=== PATIENT | female | born 1955 | race Caucasian/White ===

== ENCOUNTER 2020-11-27 07:20 | Day surgery (SDC) | payer MEDICAID, SELFPAY ==
[~2020-11-27] VITALS: Ht 154.9 cm; Wt 106.6 kg
[2020-11-27] MEDS ORDERED: DIPHENHYDRAMINE INJ 50 MG/ML VIAL ONE (08:49)
[2020-11-27] MEDS ORDERED: MIDAZOLAM HCL 5 MG/5 ML VIAL ONE (08:49)
[2020-11-27 15:00] VITALS: BP_SYST 125
== END 2020-11-27 10:25 | disposition home or self-care (01) ==
LOC: SDS 07:20 → SMU 07:20 → SDS 10:25
PROVIDERS: ATTEND Internal Medicine
DX: M51.16 Intervertebral disc disorders with radiculopathy, lumbar region (principal); G89.4 Chronic pain syndrome; M51.9 Unspecified thoracic, thoracolumbar and lumbosacral intervertebral disc disorder; E11.9 Type 2 diabetes mellitus without complications; I10 Essential (primary) hypertension; E66.9 Obesity, unspecified; M47.9 Spondylosis, unspecified; M79.10 Myalgia, unspecified site; Z79.899 Other long term (current) drug therapy; Z20.822 Contact with and (suspected) exposure to COVID-19
CPT/HCPCS: 62323; 82962; J2250; U0003; 76000; J1200

== ENCOUNTER 2021-01-31 07:50 | Day surgery (SDC) | payer MEDICAID, SELFPAY ==
[~2021-01-31] VITALS: Ht 152.4 cm; Wt 68.0 kg
[2021-01-31] MEDS ORDERED: LIDOCAINE 1% 10 MG/ML, 20 ML MDV INJ ONE (07:51)
[2021-01-31] MEDS ORDERED: BUPIVACAINE /PF 0.25% 30 ML VIAL INJ ONE (07:51)
[2021-01-31] MEDS ORDERED: IOPAMIDOL 50 ML VIAL IV ONE (07:51)
[2021-01-31] MEDS ORDERED: methylPREDNISolone ACETATE 40 MG/ML IM ONE (07:51)
[2021-01-31] MEDS ORDERED: MIDAZOLAM HCL 2 MG/2 ML VIAL (VERSED) ONE (08:06)
[2021-01-31] MEDS ORDERED: DIPHENHYDRAMINE INJ 50 MG/ML VIAL ONE (08:07)
[2021-01-31] MEDS ORDERED: MORPHINE 2 MG/ML INJ. SYRINGE ONE (09:59)
[2021-01-31 15:00] VITALS: BP_SYST 142
== END 2021-01-31 11:25 | disposition home or self-care (01) ==
LOC: SDS 07:50 → SMU 07:51 → SDS 11:25
PROVIDERS: ATTEND Internal Medicine
DX: M51.16 Intervertebral disc disorders with radiculopathy, lumbar region (principal); E11.9 Type 2 diabetes mellitus without complications; I10 Essential (primary) hypertension; E66.9 Obesity, unspecified; G89.4 Chronic pain syndrome; Z79.899 Other long term (current) drug therapy; Z20.822 Contact with and (suspected) exposure to COVID-19
CPT/HCPCS: 64483; 82962; J1200; J2270; U0003; 76000; J1030; J2001; J3465; J3490; Q9967

== ENCOUNTER 2022-06-17 06:44 | Day surgery (SDC) | payer MEDICAID ==
[~2022-06-17] VITALS: Ht 160 cm; Wt 104.3 kg
[2022-06-17] MEDS ORDERED: DIPHENHYDRAMINE INJ 50 MG/ML VIAL ONE (08:58)
[2022-06-17] MEDS ORDERED: MIDAZOLAM HCL 5 MG/5 ML VIAL ONE (09:01)
[2022-06-17] MEDS ORDERED: fentaNYL CITRATE/PF 100 MCG/2 ML AMP ONE (09:03)
[2022-06-17] MEDS ORDERED: methylPREDNISolone ACETATE 40 MG/ML ONE (12:00)
[2022-06-17] MEDS ORDERED: LIDOCAINE 2%, 20 ML MDV ONE (12:00)
[2022-06-17] MEDS ORDERED: ISOVUE-300 (IOPAMIDOL) 100 ML INFUS..BTL IV ONE (12:00)
[2022-06-17] MEDS ORDERED: NORMAL SALINE 10 ML VIAL ONE (12:00)
[2022-06-17 14:26] VITALS: BP_SYST 150
== END 2022-06-17 10:20 | disposition home or self-care (01) ==
LOC: SDS 06:44 → SMU 07:10 → SDS 10:20
PROVIDERS: ATTEND Internal Medicine
DX: M51.16 Intervertebral disc disorders with radiculopathy, lumbar region (principal); G89.4 Chronic pain syndrome; I10 Essential (primary) hypertension; E11.9 Type 2 diabetes mellitus without complications; Z88.8 Allergy status to other drugs, medicaments and biological substances; Z20.822 Contact with and (suspected) exposure to COVID-19; Z79.84 Long term (current) use of oral hypoglycemic drugs; Z79.899 Other long term (current) drug therapy
CPT/HCPCS: 36415; 62323; 82962; U0003; J1200; J2001; J1030; J2250; J3010; Q9967; J7030; 76000

== ENCOUNTER 2022-11-18 07:59 | Day surgery (SDC) | payer MEDICAID ==
[~2022-11-18] VITALS: Ht 152.4 cm; Wt 106.6 kg
[2022-11-18] MEDS ORDERED: ISOVUE-300 (IOPAMIDOL) 100 ML INFUS..BTL IV ONE (09:00)
[2022-11-18] MEDS ORDERED: LIDOCAINE 2%, 20 ML MDV ONE (09:00)
[2022-11-18] MEDS ORDERED: NORMAL SALINE 10 ML VIAL ONE (09:00)
[2022-11-18] MEDS ORDERED: methylPREDNISolone ACETATE 40 MG/ML ONE (09:00)
[2022-11-18] MEDS: MIDAZOLAM HCL 5 MG/5 ML VIAL ONE ×2 (10:47→10:50)
[2022-11-18 13:25] VITALS: BP_SYST 179
[2022-11-18] MEDS ORDERED: ONDANSETRON HCL 4 MG/2 ML VIAL ONE (14:09)
[2022-11-18] MEDS ORDERED: fentaNYL CITRATE/PF 100 MCG/2 ML AMP ONE (14:09)
[2022-11-18] MEDS ORDERED: DIPHENHYDRAMINE INJ 50 MG/ML VIAL ONE (14:09)
== END 2022-11-18 12:10 | disposition home or self-care (01) ==
LOC: SDS 07:59 → SMU 08:00 → SDS 12:10
PROVIDERS: ATTEND Internal Medicine
DX: M51.16 Intervertebral disc disorders with radiculopathy, lumbar region (principal); M47.816 Spondylosis without myelopathy or radiculopathy, lumbar region; G89.4 Chronic pain syndrome; I10 Essential (primary) hypertension; E11.9 Type 2 diabetes mellitus without complications; Z79.899 Other long term (current) drug therapy
CPT/HCPCS: 62323; 82962; J1200; J2001; J1030; J2250; J3010; Q9967; 76000; J2405

== ENCOUNTER 2023-10-06 06:55 | Day surgery (SDC) | payer MEDICAID ==
[~2023-10-06] VITALS: Ht 154.9 cm; Wt 108.9 kg
[2023-10-06 08:26] VITALS: O2SAT 98
[2023-10-06] MEDS: fentaNYL CITRATE/PF 100 MCG/2 ML AMP ONE (08:53)
[2023-10-06] MEDS: MIDAZOLAM HCL 5 MG/5 ML VIAL ONE (08:55)
[2023-10-06] MEDS ORDERED: LIDOCAINE MPF 2% 20 MG/1 ML, 5 ML VIAL INH ONE (09:00)
[2023-10-06 15:58] VITALS: BP_SYST 151; PULSE 68; RESP 17
== END 2023-10-06 10:14 | disposition home or self-care (01) ==
LOC: SDS 06:55 → SMU 07:00 → SDS 10:14
PROVIDERS: ATTEND Internal Medicine
DX: M51.16 Intervertebral disc disorders with radiculopathy, lumbar region (principal); I10 Essential (primary) hypertension; E11.9 Type 2 diabetes mellitus without complications; E66.9 Obesity, unspecified; Z98.890 Other specified postprocedural states; Z79.899 Other long term (current) drug therapy; Z68.42 Body mass index [BMI] 45.0-49.9, adult; Z79.84 Long term (current) use of oral hypoglycemic drugs
CPT/HCPCS: 62323; 82948; J2250; J3010; Q9967; J1010; 76000; J1030

== ENCOUNTER 2024-02-16 12:12 | Day surgery (SDC) | payer MEDICAID ==
[~2024-02-16] VITALS: Ht 154.9 cm; Wt 108.9 kg
[~2024-02-16 12:12] MED LIST: IOHEXOL 300 mgI/mL, 50 mL INFUS..BTL IV ONE; LIDOCAINE MPF 2% 20 MG/1 ML, 5 ML VIAL INH ONE; NORMAL SALINE 10 ML VIAL ONE; methylPREDNISolone ACETATE 40 MG/ML ONE
[2024-02-16] MEDS: fentaNYL CITRATE/PF 100 MCG/2 ML AMP ONE (14:02)
[2024-02-16] MEDS: fentaNYL CITRATE/PF 100 MCG/2 ML AMP IVP ONE (14:02)
[2024-02-16] MEDS: MIDAZOLAM HCL 5 MG/5 ML VIAL ONE (14:03)
[2024-02-16] MEDS: MIDAZOLAM HCL 5 MG/5 ML VIAL IVP ONE ×2 (14:03→14:06)
[2024-02-16 15:26] VITALS: O2SAT 96
[2024-02-18 12:59] VITALS: BP_SYST 148; PULSE 74; RESP 16
== END 2024-02-16 15:08 | disposition home or self-care (01) ==
LOC: SPM 12:12 → SMU 12:15 → SPM 15:08
PROVIDERS: ATTEND Internal Medicine
DX: M51.16 Intervertebral disc disorders with radiculopathy, lumbar region (principal); M79.10 Myalgia, unspecified site; G89.4 Chronic pain syndrome; M96.1 Postlaminectomy syndrome, not elsewhere classified; M47.26 Other spondylosis with radiculopathy, lumbar region; I10 Essential (primary) hypertension; E11.9 Type 2 diabetes mellitus without complications; E78.5 Hyperlipidemia, unspecified; E66.9 Obesity, unspecified; Z68.42 Body mass index [BMI] 45.0-49.9, adult; Z79.84 Long term (current) use of oral hypoglycemic drugs; Z79.899 Other long term (current) drug therapy; Z83.3 Family history of diabetes mellitus
CPT/HCPCS: 62323; 82948; J2250; J3010; Q9967; J1010; 76000; J1030